=== PATIENT | female | born 1995 | race African-American/Black ===

== ENCOUNTER 2017-05-13 17:46 | Emergency (ER) | payer OTHER ==
[2017-05-13 17:54] VITALS: BP 122/77
--- NOTE | 2017-05-13 17:58 | UC ---
Respiratory Complaint HPI - HPI Summary HPI Summary: Pt presents with a ST for 1 week and non-productive cough that started 3 days ago. Says that she finds it difficult to get a deep breath and has pain in her chest when taking a deep breath. Has been taking mucinex and nyquill with little to no relief. Feels very fatigued. Denies fever, chills, sinus congestion , chest pain, N/V/D/C. - History of Current Complaint Chief Complaint: UCRespiratory Stated Complaint: SORE THROAT, COUGH Time Seen by Provider: 05/13/17 17:55 Hx Obtained From: Patient Hx Last Menstrual Period: naxplanon Onset/Duration: Gradual Onset Severity Initially: Mild Severity Currently: Moderate Pain Intensity: 7 Pain Scale Used: 0-10 Numeric Character: Cough: Nonproductive Associated Signs And Symptoms: Positive: Pleuritic Chest Pain. Negative: Fever , Chills - Allergies/Home Medications Allergies/Adverse Reactions: Allergies Allergy/AdvReac Type Severity Reaction Status Date / Time No Known Allergies Allergy Verified 05/13/17 17:54 Home Medications: Home Medications Etonogestrel [Nexplanon] 68 mg IMPLANT 05/13/17 [History] PMH/Surg Hx/FS Hx/Imm Hx Previously Healthy: Yes - Surgical History Surgical History: None - Social History Occupation: Student Lives: Alone Alcohol Use: Rare Substance Use Type: None Smoking Status (MU): Never Smoked Tobacco Review of Systems Constitutional: Negative Skin: Negative Eyes: Negative ENT: Sore Throat Respiratory: Shortness Of Breath, Cough Cardiovascular: Negative Gastrointestinal: Negative Genitourinary: Negative All Other Systems Reviewed And Are Negative: Yes Physical Exam Triage Information Reviewed: Yes Appearance: Well-Nourished, Ill-Appearing Vital Signs: Initial Vital Signs Temp 100.4 F 05/13/17 17:50 Pulse 98 05/13/17 17:50 Resp 18 05/13/17 17:50 BP 122/77 05/13/17 17:50 Pulse Ox 100 05/13/17 17:50 Vital Signs Reviewed: Yes Eyes: Positive: Conjunctiva Clear ENT: Positive: Hearing grossly normal, Pharyngeal erythema, TMs normal, Uvula midline. Negative: Nasal congestion, Nasal drainage, TM bulging, TM dull, TM red, Tonsillar swelling, Tonsillar exudate, Sinus tenderness Neck: Positive: Supple, Nontender, Other: - Cervical adenopathy L>R Respiratory: Positive: Chest non-tender, Lungs clear, No respiratory distress, No accessory muscle use, Decreased breath sounds - Right lung Cardiovascular: Positive: RRR, No Murmur, Pulses Normal Neurological: Positive: Alert Psychological: Positive: Age Appropriate Behavior Skin: Negative: rashes UC Diagnostic Evaluation - Laboratory O2 Sat by Pulse Oximetry: 100 Respiratory Course/Dx - Course Course Of Treatment: Prior to imaging study, a test was offered and potential risks to a fetus were discussed - pt declined test. POC strep - negative. CXR - negative. Suspect a viral illness vs. mono - pt was advised to increase fluid intake, rest, and take tylenol for any fevers. Albuterol inhaler 1-2 puffs q6 hrs prn cough - Differential Dx/Diagnosis Differential Diagnosis/HQI/PQRI: Bronchitis, Influenza, Lower Resp Infection Provider Diagnoses: Acute Bronchitis Discharge - Discharge Plan Condition: Stable Disposition: HOME Prescriptions: Albuterol HFA INHALER* [Ventolin HFA Inhaler*] 1 - 2 puff INH Q6H PRN #1 mdi PRN Reason: Cough Patient Education Materials: Acute Bronchitis (ED) Referrals: No Primary Care Phys,NOPCP [Primary Care Provider] - Additional Instructions: 1) Rest and drink plenty of water! 2) May use your inhaler 1-2 puffs every 6 hours as needed for cough. If you develop a fever, SOB, chest pain, new or worsening symptoms - please call your PCP or go to the ED.
--- NOTE | 2017-05-13 18:24 | RAD ---
INDICATION: Cough and sore throat x6 days COMPARISON: None TECHNIQUE: PA and lateral views of the chest were obtained. FINDINGS: The heart and mediastinum are normal in size and contour. The lungs are grossly clear. There is no evidence of large pleural effusion. Visualized bones are normal for the patient's age. There is no radiographic evidence of free air beneath the diaphragm IMPRESSION: No radiographic evidence of acute cardiopulmonary disease.
== END 2017-05-13 18:41 | disposition home or self-care (01) ==
LOC: UCEAST 17:46
DX: J20.9 Acute bronchitis, unspecified (principal)
CPT/HCPCS: 71020; 87651; 99202; G0463

== ENCOUNTER 2017-09-28 21:18 | Emergency (ER) | payer OTHER ==
[2017-09-28] MEDS ORDERED: Ondansetron ODT TAB* 4 MG SL ONE (21:27)
[2017-09-28] MEDS ORDERED: Al Hydrox/Mg Hydrox/Simet LIQ* 30 ML UDC PO ONE (21:27)
[2017-09-28 21:29] VITALS: BP 106/72
[2017-09-28] MEDS ORDERED: Famotidine TAB* 20 MG PO ONE (21:53)
--- NOTE | 2017-09-28 21:57 | UC ---
Abdominal Pain Female HPI - HPI Summary HPI Summary: Patient presents to the with CC of epigastric pain x 30 minutes ago after eating. States she has a feeling of gnawing pain with associated nausea. Denies any vomiting, constipation, diarrhea. She has felt well all day until approximately 30 minutes ago. Symptoms are aggravated with nothing and alleviated with nothing. She has not tried any gygm-[id number] medications or fluids. Denies chance of . Associated dizziness. Denies any cardiac history. Denies any symptoms like this in the past. She has never been diagnosed with gastritis or GERD. - History of Current Complaint Chief Complaint: UCAbdominalPain Stated Complaint: ABDOMINAL PAIN Time Seen by Provider: 09/28/17 21:31 Hx Obtained From: Patient Hx Last Menstrual Period: 09/24/17 ?: No Onset/Duration: Sudden Onset Timing: Constant Severity Initially: Mild Severity Currently: Mild Pain Intensity: 10 Pain Scale Used: 0-10 Numeric Location: Epigastric Radiates: No Character: Cramping Aggravating Factor(s): Nothing Alleviating Factor(s): Nothing Associated Signs and Symptoms: Positive: Negative - Risk Factors Ectopic Risk Factor: Negative Ovarian Torsion Risk Factor: Negative Allergies/Adverse Reactions: Allergies Allergy/AdvReac Type Severity Reaction Status Date / Time No Known Allergies Allergy Verified 09/28/17 21:29 PMH/Surg Hx/FS Hx/Imm Hx Previously Healthy: Yes - Surgical History Surgical History: None - Social History Occupation: Employed Part-time Lives: With Family Alcohol Use: Rare Substance Use Type: None Smoking Status (MU): Never Smoked Tobacco Review of Systems Constitutional: Negative Skin: Negative Respiratory: Negative Cardiovascular: Negative Gastrointestinal: Abdominal Pain, Nausea Motor: Negative Neurovascular: Negative Neurological: Negative Psychological: Negative Is Patient Immunocompromised?: No All Other Systems Reviewed And Are Negative: Yes Physical Exam Triage Information Reviewed: Yes Appearance: Well-Appearing, Well-Nourished Vital Signs: Initial Vital Signs Temp 97.3 F 09/28/17 21:22 Pulse 67 09/28/17 21:22 Resp 18 09/28/17 21:22 BP 106/72 09/28/17 21:22 Pulse Ox 100 09/28/17 21:22 Vital Signs Reviewed: Yes Eye Exam: Normal Neck exam: Normal Neck: Positive: Supple, No Lymphadenopathy Respiratory Exam: Normal Respiratory: Positive: Chest non-tender, Lungs clear Cardiovascular Exam: Normal Cardiovascular: Positive: RRR Abdomen Description: Positive: Soft, Other: - Tenderness to the epigastric region Musculoskeletal Exam: Normal Musculoskeletal: Positive: Strength Intact Psychological Exam: Normal Psychological: Positive: Normal Response To Family Abd Pain Female Course/Dx - Course Course Of Treatment: During course of treatment, the patient is given 30 mils Maalox as well as 40 g famotidine. EKG obtained. UA and both negative. She is feeling somewhat improved after the Maalox. I discussed treatment options with her and going to the ED for further evaluation. She declines this at this time. I'm comfortable with her discharge to home at this point and she is understanding if symptoms persist, she will go to the ED. - Differential Dx/Diagnosis Provider Diagnoses: Dyspepsia Discharge - Sign-Out/Discharge Documenting (check all that apply): Discharge - Discharge Plan Condition: Stable Disposition: HOME Patient Education Materials: Gastroesophageal Reflux Disease (ED) Referrals: Latonia Roldan NP [Primary Care Provider] - Additional Instructions: Maalox 30ml every 4 hours as needed for GERD/gastritis symptoms - Billing Disposition and Condition Condition: STABLE Disposition: HOME
== END 2017-09-28 22:00 | disposition home or self-care (01) ==
LOC: UCEAST 21:18
DX: R10.13 Epigastric pain (principal); R42 Dizziness and giddiness; R11.0 Nausea; Z32.02 Encounter for pregnancy test, result negative
CPT/HCPCS: 81003; 84702; 99212; A9270-GY; G0463

== ENCOUNTER 2018-04-02 11:58 | Emergency (ER) | payer OTHER ==
--- NOTE | 2018-04-02 12:41 | UC ---
Complaint Female HPI - HPI Summary HPI Summary: 22 y/o female presents to the urgent care c/o pain/discomfort when urinating x4 days. left lower quadrant/pelvic pain. Also has blister on heel that will not heal. - History Of Current Complaint Stated Complaint: URINARY ISSUE Time Seen by Provider: 04/02/18 12:39 Hx Obtained From: Patient Hx Last Menstrual Period: 09/24/17 Onset/Duration: Gradual Onset, Lasting Days - 4 days, Still Present, Worse Since - today Timing: Intermittent Severity Initially: Mild Severity Currently: Moderate Pain Intensity: 6 Pain Scale Used: 0-10 Numeric Character: Burning Aggravating Factor(s): Urination Associated Signs And Symptoms: Negative: Fever, Back Pain, Vaginal Bleeding/ Discharge, Nausea, Vomiting(# Of Episodes =) - Risk Factors Ectopic Risk Factor: Negative Ovarian Torsion Risk Factor: Negative - Allergies/Home Medications Allergies/Adverse Reactions: Allergies Allergy/AdvReac Type Severity Reaction Status Date / Time No Known Allergies Allergy Verified 04/02/18 12:50 Home Medications: Home Medications medroxyPROGESTERone ACETATE* [DEPO-Provera*] 1 dose IM SEE INSTRUCTIONS [History Confirmed 04/02/18] PMH/Surg Hx/FS Hx/Imm Hx Previously Healthy: Yes - Pt denies PMHX - Surgical History Surgical History: None - Family History Known Family History: Positive: Cardiac Disease, Hypertension, Diabetes - Social History Occupation: Employed Full-time Lives: With Family Alcohol Use: Rare Substance Use Type: None Smoking Status (MU): Never Smoked Tobacco Review of Systems Constitutional: Negative Skin: Other - left posterior ankle w/ infected blister and some yellowish drainage Eyes: Negative ENT: Negative Respiratory: Negative Cardiovascular: Negative Gastrointestinal: Negative Genitourinary: Dysuria, Frequency, Urgency, Other - Left pelvic pain Motor: Negative Neurovascular: Negative Musculoskeletal: Negative Neurological: Negative Psychological: Negative Is Patient Immunocompromised?: No All Other Systems Reviewed And Are Negative: Yes Physical Exam - Summary Physical Exam Summary: VITAL SIGNS: Reviewed. GENERAL: Patient is a well developed and nourished female who is sitting comfortable in the examining table. Patient is not in any acute respiratory distress. HEAD AND FACE: No signs of trauma. No ecchymosis, hematomas or skull depressions. No sinus tenderness. EYES: PERRLA, EOMI x 2, No injected conjunctiva, clear watery eyes, no nystagmus. No photophobia. EARS: Hearing grossly intact. Ear canals and tympanic membranes are within normal limits. MOUTH: pharynx with no erythema, no exudates,no palatal petechiae. no B/L tonsillar enlargement Uvula in midline. NECK: Supple, trachea is midline, no lymphadenopathy, no JVD, no carotid bruit, no c-spine tenderness, neck with full ROM. CHEST: Symmetric, no tenderness at palpation LUNGS: Clear to auscultation bilaterally. No wheezing or crackles. CVS: Regular rate and rhythm, S1 and S2 present, no murmurs or gallops appreciated. ABDOMEN: Soft, non-tender. No signs of distention. No rebound no guarding, and no masses palpated. Bowel sounds are normal. Mild point tenderness on deep palpation of the left side of pelvis. BACK:no scoliosis or lesions, non tender to palpation, No B/L CVA tenderness EXTREMITIES: FROM in all major joints, no edema, no cyanosis or clubbing. NEURO: Alert and oriented x 3. No acute neurological deficits. Speech is normal and follows commands. SKIN: Dry and warm. Posterior side of left ankle w/ erythematous oval wound w/ yellowish drainage and tender to palpation, warm to touch, about 3.0x 1.0cm in size. FROM of left ankle, sensation intact and capillary refill brisck, pulses WNL. Triage Information Reviewed: Yes Complaint Female Dx - Differential Dx/Diagnosis Differential Diagnosis/HQI/PQRI: Cervicitis, Ovarian Cyst, Ovarian Torsion, Pelvic Inflammatory Disease, Renal Colic, Sexually Transmitted Disease, Ureteral Stone, Urinary Tract Infection Provider Diagnoses: 1-Dysuria. 2-left ankle infected wound s/p pressure blister. 3-Pelvic pain Discharge - Sign-Out/Discharge Documenting (check all that apply): Patient Departure - D/C home All imaging exams completed and their final reports reviewed: No Studies - Discharge Plan Condition: Stable Disposition: HOME Prescriptions: Bacitracin OINTMENT* 1 applic TOPICAL BID #1 tube Cephalexin CAP* [Keflex CAP*] 500 mg PO TID #21 cap Ibuprofen TAB* [Motrin TAB* 600 MG] 600 mg PO Q6H PRN #30 tab PRN Reason: Pain Phenazopyridine TAB* [Pyridium 100 mg TAB*] 100 mg PO TID #6 tab Patient Education Materials: Acute Wound Care (ED), Pelvic Pain in Women (ED), Dysuria (ED) Forms: *Work Release Referrals: [facility] [Outside] - 3 Days Nina Solano MD [Medical Doctor] - 2 Days Additional Instructions: 1- Please take Pyridium 100 mg PO TID x 2 days to alleviate urinary symptoms. Increase increase fluid intake. drink cranberry juice. 2-Urine sent for culture if any abnormality, you will be notified for further treatment. 3- Take Ibuprofen PO after meals as directed to alleviate pelvic pain. If pelvic pain becomes severed or you develop vaginal bleeding please go immediately to the ER for further management. 4- Take Keflex PO as directed and apply Bacitracin oint over wound area as directed. Avoid to much flexion of your ankle or standing for long period of time. 5-If symptoms do not improve please return to the urgent care or f/u with PCP in 3 days for further evaluation and treatment. - Billing Disposition and Condition Condition: STABLE Disposition: Home
[2018-04-02 12:50] VITALS: BP 122/68
== END 2018-04-02 13:35 | disposition home or self-care (01) ==
LOC: UCEAST 11:58
DX: R30.0 Dysuria (principal); R10.32 Left lower quadrant pain; R10.2 Pelvic and perineal pain; S90.522A Blister (nonthermal), left ankle, initial encounter; L08.9 Local infection of the skin and subcutaneous tissue, unspecified; X58.XXXA Exposure to other specified factors, initial encounter; Y92.9 Unspecified place or not applicable
CPT/HCPCS: 81003; 84702; 87086; 99212; G0463